=== PATIENT | male | born 1955 | race Caucasian/White ===

== ENCOUNTER 2023-08-13 15:56 | Inpatient (IN) | payer OTHER ==
[~2023-08-13] VITALS: Ht 195.6 cm; Wt 104.3 kg
[2023-08-13 22:30] VITALS: BP 149/83; TEMP 98.6; O2SAT 96
[2023-08-14] VITALS (8 sets, daily range): BP systolic 119–149; BP diastolic 74–87; TEMP 97.5–98.6; O2SAT 96–99
[2023-08-14] MEDS ORDERED: MAGNESIUM HYDROXIDE 30 ML UDC PO PRN
[2023-08-14] MEDS ORDERED: ACETAMINOPHEN 325 MG TABLET PO PRN
[2023-08-14] MEDS ORDERED: MAG HYDROX/AL HYDROX/SIMETH 30 ML UDC PO PRN
[2023-08-14] MEDS ORDERED: ONDANSETRON HCL/PF 4 MG/2 ML VIAL IVP PRN
[2023-08-14] MEDS ORDERED: Z GUARD REMEDY 4 OZ OINT TP PRN
[2023-08-14] MEDS ORDERED: ZOLPIDEM TARTRATE 5 MG TABLET PO PRN
[2023-08-14] MEDS: IV NS 0.9% 1,000 ML IV PRN ×2 (01:14→15:02)
[2023-08-14 05:52] LABS: BASOPHILS % (AUTO) 0.1 % (0.0-2.0); EOSINOPHILS % (AUTO) 0.6 % (0.0-6.0); HEMATOCRIT 28 % (39-51); HEMOGLOBIN 9.3 g/dL (13.5-17.5); LYMPHOCYTES # (AUTO) 0.6 K/uL (0.8-4.8); LYMPHOCYTES % (AUTO) 8.2 % (20.0-44.0); MEAN CORPUSCULAR HEMOGLOBIN 30 PG (26.0-33.0); MEAN CORPUSCULAR HGB CONC 33 g/dl (31.0-36.0); MEAN CORPUSCULAR VOLUME 91 fL (80-96); MONOCYTES # (AUTO) 0.5 K/uL (0.1-1.30); MONOCYTES % (AUTO) 6.8 % (2.0-12.0); NEUTROPHILS # (AUTO) 5.7 K/uL (1.8-8.9); NEUTROPHILS % (AUTO) 84.3 % (43.0-81.0); PLATELET COUNT (AUTO) 151 K/uL (150-450); RED BLOOD CELL COUNT(AUTO) 3.08 MIL/uL (4.5-6.0); WHITE BLOOD COUNT (AUTO) 6.8 K/uL (4.3-11.0)
[2023-08-14 06:07] LABS: CALCIUM, SERUM 8.4 mg/dL (8.5-10.1); CREATININE 1.1 mg/dL (0.6-1.3); MAGNESIUM 2.6 mg/dL (1.8-2.4); PHOSPHORUS 3.1 mg/dL (2.5-4.9); POTASSIUM 3.6 mmol/L (3.5-5.1)
[2023-08-14] MEDS: CLOTRIMAZOLE 1% 15 GM TUBE TP SCH ×2 (10:23→17:12)
[2023-08-14 13:25] LABS: THYROID STIMULATING HORMONE 41.132 uIU/mL (0.358-3.74)
[2023-08-14 21:34] LABS: APPEARANCE,URINE SLIGHTLY CLOUDY (CLEAR); BILIRUBIN,URINE NEGATIVE (NEGATIVE); BLOOD, URINE 1+ Ery/uL (NEGATIVE); COLOR,URINE YELLOW (YELLOW); KETONES,URINE TRACE mg/dL (NEGATIVE); LEUKOCYTE ESTERASE ,URINE 1+ (NEGATIVE); NITRITE, URINE NEGATIVE (NEGATIVE); PROTEIN,URINE TRACE mg/dl (NEGATIVE); UGLUCOSE NEGATIVE (NEGATIVE); UROBILINOGEN,URINE 0.2 EU/dL (0.2)
[2023-08-14 21:45] LABS: ADD URINE CULTURE YES; BACTERIA,URINE 4+ /HPF (None Seen); RBC,URINE 81-100 /HPF (0-2); SQUAMOUS EPITHELIAL CELL,UR Few /HPF (None Seen); WBC,URINE 81-100 /HPF (0-3)
[2023-08-15] VITALS: BP 132/83; TEMP 97.7; O2SAT 96
[2023-08-15 04:00] VITALS: BP 139/95; TEMP 97.9; O2SAT 97
[2023-08-15] MEDS: IV NS 0.9% 1,000 ML IV PRN ×2 (04:39→17:46)
[2023-08-15 08:00] VITALS: BP 136/88; TEMP 98.1; O2SAT 99
[2023-08-15] MEDS: ESCITALOPRAM OXALATE (10 MG) 10 MG TABLET PO SCH ×2 (09:00→10:44)
[2023-08-15 09:03] LABS: BASOPHILS % (AUTO) 0.4 % (0.0-2.0); EOSINOPHILS # (AUTO) 0.1 K/uL (0.0-0.7); EOSINOPHILS % (AUTO) 1.4 % (0.0-6.0); HEMATOCRIT 28 % (39-51); HEMOGLOBIN 9.2 g/dL (13.5-17.5); LYMPHOCYTES # (AUTO) 0.8 K/uL (0.8-4.8); MEAN CORPUSCULAR HEMOGLOBIN 30 PG (26.0-33.0); MEAN CORPUSCULAR HGB CONC 33 g/dl (31.0-36.0); MEAN CORPUSCULAR VOLUME 91 fL (80-96); MONOCYTES # (AUTO) 0.7 K/uL (0.1-1.30); MONOCYTES % (AUTO) 9.6 % (2.0-12.0); NEUTROPHILS # (AUTO) 5.6 K/uL (1.8-8.9); NEUTROPHILS % (AUTO) 77.6 % (43.0-81.0); PLATELET COUNT (AUTO) 151 K/uL (150-450); RED BLOOD CELL COUNT(AUTO) 3.06 MIL/uL (4.5-6.0); RED CELL DISTRIBUTION WIDTH 14.1 % (11.5-15.0); WHITE BLOOD COUNT (AUTO) 7.2 K/uL (4.3-11.0)
[2023-08-15 09:17] LABS: ALBUMIN 2.5 g/dL (3.4-5.0); BILIRUBIN,TOTAL 0.6 mg/dL (0.2-1.0); CALCIUM, SERUM 8.4 mg/dL (8.5-10.1); CREATININE 0.9 mg/dL (0.6-1.3); MAGNESIUM 2.2 mg/dL (1.8-2.4); PHOSPHORUS 2.4 mg/dL (2.5-4.9); POTASSIUM 3.6 mmol/L (3.5-5.1); TOTAL PROTEIN, SERUM 6.2 g/dL (6.4-8.2)
[2023-08-15 10:18] LABS: LYMPHOCYTES % (MANUAL) 11 % (16-48); MONOCYTES % (MANUAL) 6 % (0-11.0); NEUTROPHILS % (MANUAL) 83 (42-76); PLATELET ESTIMATE ADEQUATE
[2023-08-15] MEDS: ENOXAPARIN SODIUM 40 MG/0.4 ML DISP.SYRIN SQ SCH (10:46)
[2023-08-15] MEDS: CLOTRIMAZOLE 1% 15 GM TUBE TP SCH ×2 (10:47→17:53)
[2023-08-15] MEDS: LEVOTHYROXINE INJ 100 MCG VIAL IV SCH (12:02)
[2023-08-15] MEDS: ENSURE CLEAR 237 ML LIQUID (MIX BERRY) PO SCH ×2 (12:08→17:46)
[2023-08-15] MEDS ORDERED: LIDOCAINE 2% JEL UROJET 10 ML MM ONE (12:30)
[2023-08-15 13:30] LABS: CREATININE, URINE 81.8 MG/DL (30.0-125.0); URINE TOTAL PROTEIN 40.9 mg/dL (0-11.9)
[2023-08-15 16:00] VITALS: BP 158/83; TEMP 97.7; O2SAT 97
[2023-08-15] MEDS ORDERED: K PHOS NEUTRAL 250 MG TABLET PO ONE (16:30)
[2023-08-15 20:50] VITALS: BP 141/78; TEMP 99; O2SAT 98
[2023-08-16 07:55] LABS: BASOPHILS % (AUTO) 0.4 % (0.0-2.0); EOSINOPHILS # (AUTO) 0.1 K/uL (0.0-0.7); EOSINOPHILS % (AUTO) 1.4 % (0.0-6.0); HEMATOCRIT 28 % (39-51); HEMOGLOBIN 9.1 g/dL (13.5-17.5); LYMPHOCYTES # (AUTO) 0.7 K/uL (0.8-4.8); LYMPHOCYTES % (AUTO) 11.6 % (20.0-44.0); MEAN CORPUSCULAR HEMOGLOBIN 30 PG (26.0-33.0); MEAN CORPUSCULAR HGB CONC 33 g/dl (31.0-36.0); MEAN CORPUSCULAR VOLUME 91 fL (80-96); MONOCYTES # (AUTO) 0.9 K/uL (0.1-1.30); MONOCYTES % (AUTO) 14.8 % (2.0-12.0); NEUTROPHILS # (AUTO) 4.6 K/uL (1.8-8.9); NEUTROPHILS % (AUTO) 71.8 % (43.0-81.0); PLATELET COUNT (AUTO) 146 K/uL (150-450); RED BLOOD CELL COUNT(AUTO) 3.05 MIL/uL (4.5-6.0); RED CELL DISTRIBUTION WIDTH 13.8 % (11.5-15.0); WHITE BLOOD COUNT (AUTO) 6.3 K/uL (4.3-11.0)
[2023-08-16] MEDS: IV NS 0.9% 1,000 ML IV PRN ×2 (07:57→20:19)
[2023-08-16 08:00] VITALS: BP 111/74; TEMP 98.4; O2SAT 96
[2023-08-16] MEDS: LEVOTHYROXINE INJ 100 MCG VIAL IV SCH (08:08)
[2023-08-16 08:17] LABS: ALBUMIN 2.1 g/dL (3.4-5.0); BILIRUBIN,TOTAL 0.5 mg/dL (0.2-1.0); CALCIUM, SERUM 7.8 mg/dL (8.5-10.1); CREATININE 0.9 mg/dL (0.6-1.3); PHOSPHORUS 2.8 mg/dL (2.5-4.9); POTASSIUM 3.2 mmol/L (3.5-5.1); TOTAL PROTEIN, SERUM 5.4 g/dL (6.4-8.2)
[2023-08-16] MEDS: ENOXAPARIN SODIUM 40 MG/0.4 ML DISP.SYRIN SQ SCH (08:45)
[2023-08-16] MEDS: ENSURE CLEAR 237 ML LIQUID (MIX BERRY) PO SCH ×3 (09:00→17:44)
[2023-08-16] MEDS: ESCITALOPRAM OXALATE (10 MG) 10 MG TABLET PO SCH (09:00)
[2023-08-16] MEDS: CLOTRIMAZOLE 1% 15 GM TUBE TP SCH ×2 (09:23→17:44)
[2023-08-16 09:39] LABS: IRON, SERUM 21 ug/dl (50-175); TOTAL IRON BINDING CAPACITY 202 ug/dl (250-450)
[2023-08-16] MEDS ORDERED: POTASSIUM CHLORIDE 20 MEQ TAB.PRT.SR PO SCH (10:00)
[2023-08-16] MEDS: POTASSIUM CL. PREMIX PERIPHER. 50 ML IV SCH ×6 (10:15→15:36)
[2023-08-16 10:29] LABS: FERRITIN 88 ng/mL (8-388)
[2023-08-16 12:00] VITALS: BP 142/79; TEMP 98.2; O2SAT 100
[2023-08-16] MEDS: BETHANECHOL CHLORIDE (25 MG) 25 MG TABLET PO SCH ×2 (12:37→17:43)
[2023-08-16] MEDS: DUTASTERIDE (0.5 MG) 0.5 MG CAPSULE PO SCH (12:37)
[2023-08-16 16:00] VITALS: BP 129/78; TEMP 98.2; O2SAT 97
[2023-08-17 05:56] LABS: BASOPHILS % (AUTO) 0.3 % (0.0-2.0); EOSINOPHILS # (AUTO) 0.1 K/uL (0.0-0.7); HEMATOCRIT 28 % (39-51); LYMPHOCYTES # (AUTO) 0.7 K/uL (0.8-4.8); LYMPHOCYTES % (AUTO) 10.3 % (20.0-44.0); MEAN CORPUSCULAR HEMOGLOBIN 30 PG (26.0-33.0); MEAN CORPUSCULAR HGB CONC 33 g/dl (31.0-36.0); MEAN CORPUSCULAR VOLUME 91 fL (80-96); MONOCYTES # (AUTO) 0.9 K/uL (0.1-1.30); MONOCYTES % (AUTO) 12.2 % (2.0-12.0); NEUTROPHILS # (AUTO) 5.4 K/uL (1.8-8.9); NEUTROPHILS % (AUTO) 75.2 % (43.0-81.0); PLATELET COUNT (AUTO) 157 K/uL (150-450); RED BLOOD CELL COUNT(AUTO) 3.04 MIL/uL (4.5-6.0); RED CELL DISTRIBUTION WIDTH 13.8 % (11.5-15.0); WHITE BLOOD COUNT (AUTO) 7.2 K/uL (4.3-11.0)
[2023-08-17 06:10] LABS: CALCIUM, SERUM 7.4 mg/dL (8.5-10.1); CREATININE 0.8 mg/dL (0.6-1.3); PHOSPHORUS 2.4 mg/dL (2.5-4.9); POTASSIUM 3.3 mmol/L (3.5-5.1)
[2023-08-17 08:00] VITALS: BP 131/75; TEMP 97.9; O2SAT 96
[2023-08-17 08:07] LABS: PTH, INTACT 38 pg/mL (15-65)
[2023-08-17] MEDS: BETHANECHOL CHLORIDE (25 MG) 25 MG TABLET PO SCH ×3 (08:41→16:24)
[2023-08-17] MEDS: DUTASTERIDE (0.5 MG) 0.5 MG CAPSULE PO SCH (08:42)
[2023-08-17] MEDS: ESCITALOPRAM OXALATE (10 MG) 10 MG TABLET PO SCH (08:42)
[2023-08-17] MEDS: ENOXAPARIN SODIUM 40 MG/0.4 ML DISP.SYRIN SQ SCH (08:43)
[2023-08-17] MEDS: ENSURE CLEAR 237 ML LIQUID (MIX BERRY) PO SCH ×3 (08:45→16:24)
[2023-08-17] MEDS ORDERED: POTASSIUM CL. PREMIX PERIPHER. 50 ML IV SCH (09:00)
[2023-08-17] MEDS: POTASSIUM CHLORIDE 20 MEQ TAB.PRT.SR PO SCH ×3 (09:03→11:27)
[2023-08-17] MEDS: NEUTRA PHOS 1 POWD.PACKET PO SCH ×2 (09:03→16:23)
[2023-08-17] MEDS: CLOTRIMAZOLE 1% 15 GM TUBE TP SCH ×2 (09:45→16:24)
[2023-08-17] MEDS ORDERED: HYDROCORTISONE 20 MG TABLET PO SCH (12:30)
[2023-08-17] MEDS ORDERED: HYDROCORTISONE 10 MG TABLET PO SCH (12:30)
[2023-08-17] MEDS: SOD FERRIC GLUC 125 MG in IV NS 0.9% 100 ML IV SCH (13:30)
[2023-08-17] MEDS ORDERED: SOD FERRIC GLUC 125 MG in IV NS 0.9% 100 ML IV SCH (14:00)
[2023-08-17 16:00] VITALS: BP 139/78; TEMP 98.9; O2SAT 97
[2023-08-17 20:00] VITALS: BP 142/85; TEMP 97.7; O2SAT 97
[2023-08-18] MEDS ORDERED: HYDROCORTISONE 20 MG TABLET PO SCH ×2 (00:10→19:00)
[2023-08-18] MEDS ORDERED: HYDROCORTISONE 10 MG TABLET PO SCH (00:13)
[2023-08-18 06:53] LABS: BASOPHILS % (AUTO) 0.2 % (0.0-2.0); EOSINOPHILS # (AUTO) 0.2 K/uL (0.0-0.7); HEMATOCRIT 28 % (39-51); LYMPHOCYTES # (AUTO) 0.6 K/uL (0.8-4.8); LYMPHOCYTES % (AUTO) 7.2 % (20.0-44.0); MEAN CORPUSCULAR HEMOGLOBIN 30 PG (26.0-33.0); MEAN CORPUSCULAR HGB CONC 33 g/dl (31.0-36.0); MEAN CORPUSCULAR VOLUME 91 fL (80-96); MONOCYTES # (AUTO) 0.7 K/uL (0.1-1.30); MONOCYTES % (AUTO) 9.3 % (2.0-12.0); NEUTROPHILS # (AUTO) 6.5 K/uL (1.8-8.9); NEUTROPHILS % (AUTO) 81.3 % (43.0-81.0); PLATELET COUNT (AUTO) 180 K/uL (150-450); RED BLOOD CELL COUNT(AUTO) 3.02 MIL/uL (4.5-6.0)
[2023-08-18 07:00] VITALS: BP 118/83; TEMP 97.5; O2SAT 97
[2023-08-18 07:22] LABS: CALCIUM, SERUM 7.6 mg/dL (8.5-10.1); CREATININE 0.8 mg/dL (0.6-1.3); PHOSPHORUS 2.8 mg/dL (2.5-4.9); POTASSIUM 3.8 mmol/L (3.5-5.1)
[2023-08-18] MEDS: ESCITALOPRAM OXALATE (10 MG) 10 MG TABLET PO SCH (08:28)
[2023-08-18] MEDS: BETHANECHOL CHLORIDE (25 MG) 25 MG TABLET PO SCH ×3 (08:28→16:32)
[2023-08-18] MEDS: DUTASTERIDE (0.5 MG) 0.5 MG CAPSULE PO SCH (08:28)
[2023-08-18] MEDS: CLOTRIMAZOLE 1% 15 GM TUBE TP SCH ×2 (08:29→16:32)
[2023-08-18] MEDS: ENSURE CLEAR 237 ML LIQUID (MIX BERRY) PO SCH ×3 (08:29→17:10)
[2023-08-18] MEDS: ENOXAPARIN SODIUM 40 MG/0.4 ML DISP.SYRIN SQ SCH (08:41)
[2023-08-18] MEDS: HYDROCORTISONE 20 MG TABLET PO SCH (08:50)
[2023-08-18 09:50] LABS: BAND % (MANUAL) 2 % (0.0-5.0); EOSINOPHILS % (MANUAL) 1 % (0-4); LYMPHOCYTES % (MANUAL) 7 % (16-48); MONOCYTES % (MANUAL) 12 % (0-11.0); NEUTROPHILS % (MANUAL) 78 (42-76); PLATELET ESTIMATE ADEQUATE
[2023-08-18 09:51] LABS: ANISOCYTOSIS 1+
[2023-08-18] MEDS: SOD FERRIC GLUC 125 MG in IV NS 0.9% 100 ML IV SCH (14:46)
[2023-08-18 16:00] VITALS: BP 124/77; TEMP 98.2; O2SAT 98
[2023-08-18] MEDS: CEFTRIAXONE 1 G in IV D5W 50 ML IV SCH (16:32)
[2023-08-18 20:00] VITALS: BP 133/72; TEMP 98.2; O2SAT 97
[2023-08-19 05:56] LABS: BASOPHILS % (AUTO) 0.1 % (0.0-2.0); EOSINOPHILS # (AUTO) 0.1 K/uL (0.0-0.7); EOSINOPHILS % (AUTO) 0.8 % (0.0-6.0); HEMATOCRIT 26 % (39-51); HEMOGLOBIN 8.7 g/dL (13.5-17.5); LYMPHOCYTES # (AUTO) 0.7 K/uL (0.8-4.8); LYMPHOCYTES % (AUTO) 9.9 % (20.0-44.0); MEAN CORPUSCULAR HEMOGLOBIN 30 PG (26.0-33.0); MEAN CORPUSCULAR HGB CONC 33 g/dl (31.0-36.0); MEAN CORPUSCULAR VOLUME 91 fL (80-96); MONOCYTES # (AUTO) 0.7 K/uL (0.1-1.30); MONOCYTES % (AUTO) 9.2 % (2.0-12.0); PLATELET COUNT (AUTO) 214 K/uL (150-450); RED CELL DISTRIBUTION WIDTH 14.1 % (11.5-15.0); WHITE BLOOD COUNT (AUTO) 7.5 K/uL (4.3-11.0)
[2023-08-19 06:16] LABS: CALCIUM, SERUM 8.1 mg/dL (8.5-10.1); CREATININE 0.8 mg/dL (0.6-1.3); MAGNESIUM 1.9 mg/dL (1.8-2.4); PHOSPHORUS 2.9 mg/dL (2.5-4.9); POTASSIUM 3.5 mmol/L (3.5-5.1)
[2023-08-19 08:00] VITALS: BP 142/84; TEMP 98.6; O2SAT 98
[2023-08-19] MEDS: ENOXAPARIN SODIUM 40 MG/0.4 ML DISP.SYRIN SQ SCH (08:55)
[2023-08-19] MEDS: ESCITALOPRAM OXALATE (10 MG) 10 MG TABLET PO SCH ×2 (08:55→09:00)
[2023-08-19] MEDS: BETHANECHOL CHLORIDE (25 MG) 25 MG TABLET PO SCH ×3 (08:55→17:11)
[2023-08-19] MEDS: DUTASTERIDE (0.5 MG) 0.5 MG CAPSULE PO SCH (08:55)
[2023-08-19] MEDS: ENSURE CLEAR 237 ML LIQUID (MIX BERRY) PO SCH ×3 (08:55→17:12)
[2023-08-19] MEDS: HYDROCORTISONE 20 MG TABLET PO SCH (08:58)
[2023-08-19] MEDS: CLOTRIMAZOLE 1% 15 GM TUBE TP SCH ×2 (10:36→17:12)
[2023-08-19] MEDS: LEVOTHYROXINE SODIUM 137 MCG TABLET PO SCH (12:32)
[2023-08-19 13:07] LABS: *SPE A/G RATIO 0.8 (0.7-1.7); *SPE ALBUMIN 2.1 g/dL (2.9-4.4); *SPE ALPHA-1-GLOBULIN 0.3 g/dL (0.0-0.4); *SPE ALPHA-2-GLOBULIN 0.7 g/dL (0.4-1.0); *SPE BETA GLOBULIN 0.7 g/dL (0.7-1.3); *SPE GLOBULIN, TOTAL 2.7 g/dL (2.2-3.9); *SPE M-SPIKE Not Observed g/dL (Not Observed); *SPE PROTEIN TOTAL 4.8 g/dL (6.0-8.5)
[2023-08-19] MEDS: SOD FERRIC GLUC 125 MG in IV NS 0.9% 100 ML IV SCH (15:19)
[2023-08-19 16:00] VITALS: BP 118/77; TEMP 99; O2SAT 96
[2023-08-19] MEDS: CEFTRIAXONE 1 G in IV D5W 50 ML IV SCH (16:24)
[2023-08-19 20:00] VITALS: BP 130/86; TEMP 99.1; O2SAT 95
[2023-08-19] MEDS: HYDROCORTISONE 5 MG TABLET PO SCH (21:27)
[2023-08-20 06:18] LABS: BASOPHILS % (AUTO) 0.1 % (0.0-2.0); EOSINOPHILS # (AUTO) 0.1 K/uL (0.0-0.7); EOSINOPHILS % (AUTO) 0.7 % (0.0-6.0); HEMATOCRIT 28 % (39-51); HEMOGLOBIN 9.1 g/dL (13.5-17.5); LYMPHOCYTES # (AUTO) 0.7 K/uL (0.8-4.8); LYMPHOCYTES % (AUTO) 8.5 % (20.0-44.0); MEAN CORPUSCULAR HEMOGLOBIN 30 PG (26.0-33.0); MEAN CORPUSCULAR HGB CONC 33 g/dl (31.0-36.0); MEAN CORPUSCULAR VOLUME 91 fL (80-96); MONOCYTES # (AUTO) 0.6 K/uL (0.1-1.30); NEUTROPHILS # (AUTO) 6.6 K/uL (1.8-8.9); NEUTROPHILS % (AUTO) 82.7 % (43.0-81.0); PLATELET COUNT (AUTO) 271 K/uL (150-450); RED BLOOD CELL COUNT(AUTO) 3.07 MIL/uL (4.5-6.0); RED CELL DISTRIBUTION WIDTH 14.2 % (11.5-15.0)
[2023-08-20 06:43] LABS: CALCIUM, SERUM 7.9 mg/dL (8.5-10.1); CREATININE 0.9 mg/dL (0.6-1.3); MAGNESIUM 1.9 mg/dL (1.8-2.4); PHOSPHORUS 2.8 mg/dL (2.5-4.9); POTASSIUM 3.3 mmol/L (3.5-5.1)
[2023-08-20 08:00] VITALS: BP 132/76; TEMP 97.9; O2SAT 96
[2023-08-20] MEDS: LEVOTHYROXINE SODIUM 137 MCG TABLET PO SCH (08:37)
[2023-08-20] MEDS: BETHANECHOL CHLORIDE (25 MG) 25 MG TABLET PO SCH ×3 (08:37→16:28)
[2023-08-20] MEDS: DUTASTERIDE (0.5 MG) 0.5 MG CAPSULE PO SCH (08:37)
[2023-08-20] MEDS: ESCITALOPRAM OXALATE (10 MG) 10 MG TABLET PO SCH (08:37)
[2023-08-20] MEDS: ENSURE CLEAR 237 ML LIQUID (MIX BERRY) PO SCH ×3 (08:38→16:28)
[2023-08-20] MEDS: CLOTRIMAZOLE 1% 15 GM TUBE TP SCH ×2 (08:39→16:47)
[2023-08-20] MEDS: HYDROCORTISONE 20 MG TABLET PO SCH (08:40)
[2023-08-20] MEDS: ENOXAPARIN SODIUM 40 MG/0.4 ML DISP.SYRIN SQ SCH (08:41)
[2023-08-20] MEDS: POTASSIUM CHLORIDE 20 MEQ TAB.PRT.SR PO SCH ×2 (09:10→10:20)
[2023-08-20] MEDS: SOD FERRIC GLUC 125 MG in IV NS 0.9% 100 ML IV SCH (14:06)
[2023-08-20] MEDS: CEFTRIAXONE 1 G in IV D5W 50 ML IV SCH (15:55)
[2023-08-20 16:07] VITALS: BP 131/82; TEMP 98.1; O2SAT 95
[2023-08-20] MEDS: HYDROCORTISONE 5 MG TABLET PO SCH (18:04)
[2023-08-20 20:41] VITALS: BP 140/90; TEMP 98.8; O2SAT 97
[2023-08-21 05:41] LABS: BASOPHILS % (AUTO) 0.3 % (0.0-2.0); EOSINOPHILS % (AUTO) 0.4 % (0.0-6.0); HEMATOCRIT 28 % (39-51); LYMPHOCYTES # (AUTO) 0.7 K/uL (0.8-4.8); LYMPHOCYTES % (AUTO) 10.3 % (20.0-44.0); MEAN CORPUSCULAR HEMOGLOBIN 29 PG (26.0-33.0); MEAN CORPUSCULAR HGB CONC 33 g/dl (31.0-36.0); MEAN CORPUSCULAR VOLUME 90 fL (80-96); MONOCYTES # (AUTO) 0.7 K/uL (0.1-1.30); MONOCYTES % (AUTO) 9.6 % (2.0-12.0); NEUTROPHILS # (AUTO) 5.6 K/uL (1.8-8.9); NEUTROPHILS % (AUTO) 79.4 % (43.0-81.0); PLATELET COUNT (AUTO) 289 K/uL (150-450); RED BLOOD CELL COUNT(AUTO) 3.07 MIL/uL (4.5-6.0); RED CELL DISTRIBUTION WIDTH 14.4 % (11.5-15.0); WHITE BLOOD COUNT (AUTO) 7.1 K/uL (4.3-11.0)
[2023-08-21 06:10] LABS: CREATININE 0.8 mg/dL (0.6-1.3); MAGNESIUM 1.7 mg/dL (1.8-2.4); PHOSPHORUS 2.9 mg/dL (2.5-4.9); POTASSIUM 3.8 mmol/L (3.5-5.1)
[2023-08-21] MEDS: LEVOTHYROXINE SODIUM 137 MCG TABLET PO SCH (07:30)
[2023-08-21 08:00] VITALS: BP 132/72; TEMP 98.1; O2SAT 97
[2023-08-21] MEDS: DUTASTERIDE (0.5 MG) 0.5 MG CAPSULE PO SCH (08:37)
[2023-08-21] MEDS: ESCITALOPRAM OXALATE (10 MG) 10 MG TABLET PO SCH (08:38)
[2023-08-21] MEDS: HYDROCORTISONE 20 MG TABLET PO SCH (08:38)
[2023-08-21] MEDS: BETHANECHOL CHLORIDE (25 MG) 25 MG TABLET PO SCH ×3 (08:39→17:32)
[2023-08-21] MEDS: ENOXAPARIN SODIUM 40 MG/0.4 ML DISP.SYRIN SQ SCH (08:54)
[2023-08-21] MEDS: ENSURE CLEAR 237 ML LIQUID (MIX BERRY) PO SCH ×3 (10:20→16:08)
[2023-08-21] MEDS: CLOTRIMAZOLE 1% 15 GM TUBE TP SCH ×2 (10:23→16:10)
[2023-08-21] MEDS ORDERED: MAGNESIUM OXIDE 400 MG TABLET PO ONE (12:30)
[2023-08-21] MEDS ORDERED: HYDR20TA23 PO (13:33)
[2023-08-21] MEDS ORDERED: BETHANECHOL CHLORIDE PO (13:33)
[2023-08-21] MEDS ORDERED: CLOT15CR35 TP (13:33)
[2023-08-21] MEDS ORDERED: DUTA0.5C2 PO (13:33)
[2023-08-21] MEDS ORDERED: LEVO137T24 PO (13:33)
[2023-08-21] MEDS ORDERED: ESCI10TA PO (13:33)
[2023-08-21] MEDS ORDERED: HYDR5TAB PO (13:33)
[2023-08-21] MEDS: CEFTRIAXONE 1 G in IV D5W 50 ML IV SCH (13:40)
[2023-08-21] MEDS: SOD FERRIC GLUC 125 MG in IV NS 0.9% 100 ML IV SCH (15:57)
[2023-08-21 16:01] VITALS: BP 115/67; TEMP 98.5; O2SAT 99
[2023-08-21] MEDS: HYDROCORTISONE 5 MG TABLET PO SCH (18:20)
== END 2023-08-21 18:30 | DRG 469 ==
LOC: TELE 22:13 → MED 08-17 10:07
PROVIDERS: ADMIT Nurse Practitioner Acute Care; ATTEND Nurse Practitioner Acute Care
DX: N17.9 Acute kidney failure, unspecified (principal); D63.8 Anemia in other chronic diseases classified elsewhere; E83.41 Hypermagnesemia; E87.1 Hypo-osmolality and hyponatremia; E27.40 Unspecified adrenocortical insufficiency; E87.20 Acidosis, unspecified; I50.22 Chronic systolic (congestive) heart failure; E86.0 Dehydration; K52.9 Noninfective gastroenteritis and colitis, unspecified; E86.9 Volume depletion, unspecified; F33.1 Major depressive disorder, recurrent, moderate; N39.0 Urinary tract infection, site not specified; R62.7 Adult failure to thrive; E03.9 Hypothyroidism, unspecified; Z20.822 Contact with and (suspected) exposure to COVID-19; R73.03 Prediabetes; E78.5 Hyperlipidemia, unspecified; M19.90 Unspecified osteoarthritis, unspecified site; Z86.73 Personal history of transient ischemic attack (TIA), and cerebral infarction without residual deficits; R80.9 Proteinuria, unspecified; K62.89 Other specified diseases of anus and rectum; K80.20 Calculus of gallbladder without cholecystitis without obstruction; M89.8X9 Other specified disorders of bone, unspecified site; N20.0 Calculus of kidney; N21.0 Calculus in bladder; N28.1 Cyst of kidney, acquired; E87.6 Hypokalemia; B96.89 Other specified bacterial agents as the cause of diseases classified elsewhere; Z88.0 Allergy status to penicillin; Z87.442 Personal history of urinary calculi; Z53.20 Procedure and treatment not carried out because of patient's decision for unspecified reasons; R33.9 Retention of urine, unspecified
CPT/HCPCS: 36415; 70450-TC; 71045-TC; 76770-TC; 80048-TC; 80053-TC; 80061-TC; 81001; 82378; 82533; 82550-TC; 82570-TC; 82728-TC; 83540-TC; 83735-TC; 83970; 84100-TC; 84155; 84165; 84300-TC; 84439-TC; 84443-TC; 84484-TC; 85025-TC; 85027-TC; 86850-TC; 87081-TC; 87086-TC; 93307-TC; 97110-TC; 97112-TC; 97530-TC; 97535-TC; A4223; A6403; G0378; J0696; J1650; J2916; J3480; J3490; J7030; J7050; J7060